=== PATIENT | female | born 1995 | race Caucasian/White ===

== ENCOUNTER → 2023-11-04 16:43 | Outpatient (REF) | payer OTHER, SELFPAY | LOC: PNTC 16:43 | PROVIDERS: ATTENDING PHYSICIAN Obstetrics & Gynecology | DX: O28.3 Abnormal ultrasonic finding on antenatal screening of mother (principal) | CPT/HCPCS: 76816 ==

== ENCOUNTER 2024-02-19 10:43 | Inpatient (IN) | payer OTHER, SELFPAY ==
[2024-02-19 10:52] VITALS: BP 126/83; BMI 30.2
[2024-02-19] MEDS: LR 1000 IV ×2 (11:47→21:01)
[2024-02-19] MEDS: CYTOTEC 50 MICROGRAM PO ×2 (11:48→16:22)
[2024-02-19 12:12] LABS: % Basophils 0.4 % (0-2); % Eosinophils 0.8 % (0-6); % Immature Granulocytes 0.6 % (0-0.5); % Lymphocytes 21.2 % (20.5-51.1); % Monocytes 7.1 % (1.7-9.3); % Neutrophils 69.9 % (42.2-75.2); Absolute Eosinophils 0.1 10^3/uL (0-0.7); Absolute Immature Granulocytes 0.1 10^3/uL (0-0.05); Absolute Monocytes 0.7 10^3/uL (0.1-0.6); Absolute Neutrophils 6.6 10^3/uL (1.4-6.5); Hematocrit 29.2 % (37.0-47.0); Mean Corp Hgb Conc. 34.2 g/dL (33.0-37.0); Mean Corpuscular Hgb 28.3 pg (27.0-31.0); Mean Corpuscular Volume 82.7 fL (81.0-99.0); Mean Platelet Volume 11.6 fL (7.4-10.4); Nucleated Red Blood Cells % 0 %; Platelet Count 228 10^3/uL (130-400); Red Blood Cell Count 3.53 10^6/uL (4.20-5.40); Red Cell Dist. Width 13.1 % (11.5-14.5); White Blood Cell Count 9.5 10^3/uL (4.8-10.8)
[2024-02-19] MEDS: CYTOTEC PO (20:29)
[2024-02-19] MEDS: PITOCIN 30 UNITS/NSS 500 ML IV (20:56)
[2024-02-19] MEDS: SUBLIMAZE 100 MCG EPIDURAL (22:29)
[2024-02-19] MEDS: FENTANYL/BUPIVACAINE 100 EPIDURAL (22:29)
[2024-02-20] MEDS: CYTOTEC 800 MCG RECTAL (06:28)
[2024-02-20] MEDS: MOTRIN 600 MG PO ×2 (11:05→18:17)
[2024-02-20] MEDS: PRENATAL PLUS 1 TABLET PO (11:05)
[2024-02-20] MEDS: TYLENOL 650 MG PO (18:16)
[2024-02-21] MEDS: MOTRIN 600 MG PO ×3 (04:57→23:58)
[2024-02-21 05:18] LABS: Hematocrit 24.2 % (37.0-47.0); Hemoglobin 8.1 g/dL (12.0-16.0)
[2024-02-21] MEDS: FEOSOL 325 MG PO ×2 (07:36→20:06)
[2024-02-21] MEDS: SENOKOT-S 1 TABLET PO (07:36)
[2024-02-21] MEDS: PRENATAL PLUS 1 TABLET PO (07:36)
[2024-02-21 15:08] LABS: Syphilis/T. pallidum Ab Reflex Negative (Negative)
[2024-02-22] MEDS: PRENATAL PLUS 1 TABLET PO (07:42)
[2024-02-22] MEDS: SENOKOT-S 1 TABLET PO (07:42)
[2024-02-22] MEDS: FEOSOL 325 MG PO (07:42)
== END 2024-02-22 10:49 | disposition home or self-care (01) | DRG 807 ==
LOC: LDRP 10:43
PROVIDERS: ADMITTING PHYSICIAN Obstetrics & Gynecology; FAMILY PHYSICIAN Obstetrics & Gynecology
PROC: 0HQ9XZZ Repair Perineum Skin, External Approach (ICD-10-PCS; 2024-02-20)
PROC: 10E0XZZ Delivery of Products of Conception, External Approach (ICD-10-PCS; 2024-02-20)
DX: O42.02 Full-term premature rupture of membranes, onset of labor within 24 hours of rupture (principal); Z37.0 Single live birth; Z3A.39 39 weeks gestation of pregnancy; O70.0 First degree perineal laceration during delivery
CPT/HCPCS: 88307; 36415; 85014; 85018; 85025; 86780; 86850; 86900; 86901